=== PATIENT | male | born 1990 | race Two or more races ===

== ENCOUNTER 2023-03-01 13:21 | Emergency (ER) | payer BC, OTHER ==
[~2023-03-01] VITALS: Ht 170.2 cm; Wt 77.2 kg
[2023-03-01] MEDS ORDERED: KETAMINE 50mg/ML 10ml Vial (500mg/10ml) IV ONE ×2 (15:00→20:35)
[2023-03-01] MEDS ORDERED: PROPOFOL 10 MG/ML 20 ML IV ONE (15:00)
[2023-03-01] MEDS ORDERED: KETOROLAC TROMETH 60MG/2ML VIAL IM ONE (15:45)
[2023-03-01] MEDS ORDERED: IBUP800T26 PO (20:51)
[2023-03-01 21:12] VITALS: BP 107/76
== END 2023-03-01 22:58 | disposition home or self-care (01) ==
LOC: ER 13:21
DX: S43.084A Other dislocation of right shoulder joint, initial encounter (principal); X58.XXXA Exposure to other specified factors, initial encounter; Y93.89 Activity, other specified; Y92.89 Other specified places as the place of occurrence of the external cause; Y99.8 Other external cause status
CPT/HCPCS: 23650; 73020; 73030; 96372; 99285; J1885; J2704

== ENCOUNTER 2024-06-14 13:18 | Emergency (ER) | payer BC ==
[~2024-06-14 13:18] MED LIST: IBUP-1455 PO
[2024-06-14 14:39] LABS: Basophils # (auto) 0 10 ^3/uL (0-0.2); Basophils % (auto) 0.8 % (0.0-2.0); Eosinophils # (auto) 0.1 10 ^3/uL (0-0.8); Hematocrit 45.5 % (41.0-53.0); Hemoglobin 15.2 g/dL (13.5-17.5); Lymphocytes # (auto) 2.1 10 ^3/uL (0.4-5.4); Lymphocytes % (auto) 37.7 % (10.0-50.0); Mean Corpuscular Hemoglobin 30.3 pg (28.0-32.0); Mean Corpuscular Hgb Conc. 33.4 g/dL (32.0-36.0); Mean Corpuscular Volume 90.8 fL (80.0-100.0); Monocytes # (auto) 0.4 10 ^3/uL (0-1.3); Monocytes % (auto) 6.8 % (0.0-12.0); Neutrophils % (auto) 53.7 % (37.0-80.0); Nucleated Red Blood Cells % 0.1 %; Platelet Count (auto) 315 10^3/uL (140-450); Red Blood Cells 5.01 10^6/uL (4.5-5.90); Red Cell Distribution Width 11.9 % (11.8-14.3); White Blood Cell 5.6 10^3/uL (4.4-10.8)
[2024-06-14 14:56] LABS: Chloride 106 mmol/L (98-107); Potassium 4.7 mmol/L (3.5-5.1); Sodium 140 mmol/L (136-145)
[2024-06-14 14:57] LABS: Anion Gap 3 (5-15); Carbon Dioxide 31 mmol/L (20-30)
[2024-06-14 14:58] LABS: Calcium 9.4 mg/dL (8.7-10.4)
[2024-06-14 15:02] LABS: BUN/Creatinine Ratio 9.8 (10.0-20.0); Blood Urea Nitrogen 12 mg/dL (9-23); Glucose 83 mg/dL (74-106)
[2024-06-14 17:05] VITALS: BP 126/77; RESP 20; TEMP 98.1
[2024-06-14 17:08] VITALS: PULSE 71; O2SAT 98
== END 2024-06-14 17:19 | disposition home or self-care (01) ==
LOC: ER 13:18
DX: R07.89 Other chest pain (principal)
CPT/HCPCS: 36415; 80048; 84484; 85025; 85379; 93005